=== PATIENT | female | born 1965 ===

== ENCOUNTER 2020-06-20 14:16 | Outpatient (CLI) | payer OTHER | END 2020-06-20 14:38 | disposition home or self-care (01) | LOC: SONOGRAMA 14:16 | PROVIDERS: ATTEND Surgery | DX: N60.01 Solitary cyst of right breast (principal); N60.12 Diffuse cystic mastopathy of left breast; N60.11 Diffuse cystic mastopathy of right breast; N64.59 Other signs and symptoms in breast ==